=== PATIENT | male | born 1940 | race Caucasian/White ===

== ENCOUNTER 2021-03-25 05:39 | Observation (INO) ==
[2021-03-25] MEDS ORDERED: GABAPENTIN 400 MG CAPSULE PO ONE (06:00)
[2021-03-25] MEDS ORDERED: ACETAMINOPHEN 500 MG TABLET PO ONE (06:00)
[2021-03-25] MEDS ORDERED: ALVIMOPAN 12 MG CAPSULE PO ONE (06:00)
[2021-03-25] MEDS ORDERED: SODIUM PHOSPHATE ENEMA 133 ML BOTTLE RECTAL ONE (06:00)
[2021-03-25] MEDS ORDERED: cefTRIAXone 1,000 MG in SODIUM CHLORIDE 0.9% 100 ML IV ONE (06:00)
[2021-03-25] MEDS ORDERED: FAMOTIDINE 20 MG TABLET PO ONE (06:00)
[2021-03-25] MEDS ORDERED: LEVOFLOXACIN INJ 500 MG/100 ML PREMIX IV ONE (06:00)
[2021-03-25] MEDS ORDERED: LIDOCAINE 2% 5 ML VIAL ONE (06:41)
[2021-03-25] MEDS ORDERED: fentaNYL 100 MCG/2 ML VIAL ONE ×2 (06:41→07:49)
[2021-03-25] MEDS ORDERED: propofoL 200 MG/20 ML VIAL IV ONE (06:41)
[2021-03-25] MEDS ORDERED: ROCURONIUM 50 MG/5 ML VIAL IV ONE ×2 (06:41→07:53)
[2021-03-25] MEDS ORDERED: MIDAZOLAM 2 MG/2 ML VIAL ONE (06:41)
[2021-03-25] MEDS ORDERED: MEPERIDINE 25 MG/1 ML VIAL ONE (06:45)
[2021-03-25] MEDS ORDERED: MORPHINE 10 MG/1 ML VIAL ONE (06:46)
[2021-03-25] MEDS: LACTATED RINGERS 1,000 ML IV SCH ×2 (07:14→11:34)
[2021-03-25] MEDS ORDERED: ePHEDrine 50 MG/ML VIAL ONE ×2 (07:18→09:08)
[2021-03-25] MEDS ORDERED: LACTATED RINGERS 1,000 ML IV ONE (07:52)
[2021-03-25] MEDS ORDERED: GLYCOPYRROLATE 0.4 MG/2 ML VIAL ONE (07:56)
[2021-03-25 08:20] LABS: Bilirubin,Urine Negative (Negative); Blood, Urine Large mg/dL (Negative); Glucose,Urine (UA) Negative (Negative); Ketones,Urine Negative (Negative); Mucus,Urine Occasional /LPF (Occasional); Nitrite,Urine Positive (Negative); Protein,Urine Negative; RBC,Urine 301 /HPF (0-4); Urine Appearance Slightly Hazy (Clear); Urine Color Yellow (Yellow); Urine Specific Gravity 1.012 (1.001-1.035); Urine Urobilinogen < 2.0 EU/DL (<2.0)
[2021-03-25] MEDS ORDERED: SEVOFLURANE 1 UNIT/15 MINUTE INH ONE (10:31)
[2021-03-25] MEDS ORDERED: SUGAMMADEX 200 MG/2 ML VIAL IV ONE (10:32)
[2021-03-25] MEDS ORDERED: ONDANSETRON 4 MG/2 ML VIAL IV PRN ×2 (10:49→11:18)
[2021-03-25] MEDS ORDERED: HYDROmorphone 2 MG/1 ML VIAL IV PRN (10:55)
[2021-03-25] MEDS ORDERED: oxyCODONE/ACETAMINOPHEN 5-325 MG TABLET PO PRN (11:16)
[2021-03-25] MEDS: HYDROmorphone 2 MG/1 ML VIAL IV PRN ×4 (11:25→11:55)
[2021-03-25] MEDS ORDERED: CYPROHEPTADINE 4 MG TABLET PO SCH (15:00)
[2021-03-25] MEDS: oxyCODONE/ACETAMINOPHEN 5-325 MG TABLET PO PRN ×2 (17:17→22:24)
[2021-03-25] MEDS: SODIUM CHLORIDE 0.45% 1,000 ML IV SCH (18:01)
[2021-03-25] MEDS: SIMVASTATIN 40 MG TABLET PO SCH (22:11)
[2021-03-25] MEDS: ACYCLOVIR 800 MG TABLET PO SCH (22:11)
[2021-03-25] MEDS: busPIRone 10 MG TABLET PO SCH (22:11)
[2021-03-25] MEDS: ALVIMOPAN 12 MG CAPSULE PO SCH (22:11)
[2021-03-26] MEDS ORDERED: OXYBUTYNIN 5 MG TABLET PO ONE (00:35)
[2021-03-26] MEDS: SODIUM CHLORIDE 0.45% 1,000 ML IV SCH (03:20)
[2021-03-26 05:47] LABS: Basophils % 0.1 % (0.0-0.8); Hematocrit 30.4 VOL% (42.0-52.0); Hemoglobin 9.2 GM/DL (14.0-18.0); Immature Granulocytes % 0.2 %; Immature Granulocytes Absolute 0.11 #; Lymphocytes # 48.8 10*3/uL (1.4-4.0); Lymphocytes % 86.9 % (21.2-54.2); Mean Corpuscular HGB Conc 30.3 GM/DL (32-36); Mean Corpuscular Volume 102.7 FL (87-102); Mean Platelet Volume 10.8 FL (9.6-12.0); NRBC # 0.05 10*3/uL; Neutrophils % 10.8 % (38.7-73.9); Platelet Count 112 T/CUMM (130-400); Red Blood Count 2.96 MC/CUMM (3.8-5.5); Red Cell Distribution Width 13.2 % (9.3-17.3)
[2021-03-26 05:58] LABS: White Blood Count 56.1 T/CUMM (4-12)
[2021-03-26 06:04] LABS: Calcium 8.3 MG/DL (8.5-10.1); Osmolality,Calculated 273.2 MOS/KG (273-304); Potassium 3.9 MMOL/L (3.5-5.1)
[2021-03-26 06:09] LABS: Atypical Lymphocytes Few; Hypochromia 1+; Lymphocytes 79 % (20-55); Microcytosis 1+; Segmented Neutrophils 19 % (50-85); Smudge Cells Moderate; Total Cells Counted 100
[2021-03-26] MEDS: LEVOTHYROXINE 150 MCG TABLET PO SCH (06:28)
[2021-03-26] MEDS: oxyCODONE/ACETAMINOPHEN 5-325 MG TABLET PO PRN ×2 (06:31→11:51)
[2021-03-26] MEDS ORDERED: LEVOFLOXACIN INJ 500 MG/100 ML PREMIX IV SCH (09:00)
[2021-03-26] MEDS ORDERED: GLUCAGON 1 MG VIAL IM PRN (09:33)
[2021-03-26] MEDS ORDERED: DEXTROSE 50% 25 GM/50 ML SYRINGE IV PRN (09:33)
[2021-03-26] MEDS ORDERED: PHENOL 1.4% THROAT SPRAY 177 ML BOTTLE PO PRN (09:33)
[2021-03-26] MEDS: GABAPENTIN 600 MG TABLET PO SCH ×2 (10:13→20:34)
[2021-03-26] MEDS: ALVIMOPAN 12 MG CAPSULE PO SCH ×2 (10:13→20:34)
[2021-03-26] MEDS: EZETIMIBE 10 MG TABLET PO SCH (10:13)
[2021-03-26] MEDS: glyBURIDE 5 MG TABLET PO SCH (10:13)
[2021-03-26] MEDS: SERTRALINE 25 MG TABLET PO SCH (10:14)
[2021-03-26] MEDS: busPIRone 10 MG TABLET PO SCH ×2 (10:14→20:34)
[2021-03-26] MEDS: SODIUM CHLORIDE 0.9% 1,000 ML IV SCH (11:34)
[2021-03-26] MEDS: ACYCLOVIR 800 MG TABLET PO SCH ×2 (11:49→20:34)
[2021-03-26] MEDS: LACTATED RINGERS 1,000 ML IV SCH (12:11)
[2021-03-26] MEDS: OXYBUTYNIN XL 10 MG TABLET PO SCH (15:57)
[2021-03-26] MEDS: SIMVASTATIN 40 MG TABLET PO SCH (20:34)
[2021-03-26] MEDS ORDERED: ACETAMINOPHEN 325 MG TABLET PO PRN (22:23)
[2021-03-26] MEDS ORDERED: cefTRIAXone 1,000 MG in SODIUM CHLORIDE 0.9% 100 ML IV ONE (22:25)
[2021-03-27] MEDS: SODIUM CHLORIDE 0.9% 1,000 ML IV SCH ×2 (00:33→13:06)
[2021-03-27 04:24] LABS: Potassium 4.2 MMOL/L (3.5-5.1)
[2021-03-27] MEDS: LEVOTHYROXINE 150 MCG TABLET PO SCH (06:07)
[2021-03-27] MEDS: glyBURIDE 5 MG TABLET PO SCH (09:13)
[2021-03-27] MEDS: ACYCLOVIR 800 MG TABLET PO SCH (09:14)
[2021-03-27] MEDS: busPIRone 10 MG TABLET PO SCH (09:14)
[2021-03-27] MEDS: ALVIMOPAN 12 MG CAPSULE PO SCH (09:14)
[2021-03-27] MEDS: EZETIMIBE 10 MG TABLET PO SCH (09:14)
[2021-03-27] MEDS: GABAPENTIN 600 MG TABLET PO SCH (09:14)
[2021-03-27] MEDS: SERTRALINE 25 MG TABLET PO SCH (09:14)
[2021-03-27] MEDS: OXYBUTYNIN XL 10 MG TABLET PO SCH (09:14)
[2021-03-27] MEDS: LACTATED RINGERS 1,000 ML IV SCH (10:09)
[2021-03-27 11:11] VITALS: BP 135/46
[2021-03-27] MEDS ORDERED: LEVOFLOXACIN INJ 500 MG/100 ML PREMIX IV ONE (13:00)
== END 2021-03-27 15:05 | disposition home or self-care (01) ==
LOC: N.OR 05:39 → N.3E 05:39 → N.SDSINP 05:41 → N.3E 12:09
PROVIDERS: ADMIT Urology; ATTEND Urology

== ENCOUNTER 2021-04-06 17:37 | Inpatient (IN) ==
[2021-04-06] MEDS ORDERED: ACETAMINOPHEN 325 MG TABLET PO PRN (19:55)
[2021-04-06] MEDS ORDERED: GLUCAGON 1 MG VIAL IM PRN (19:55)
[2021-04-06] MEDS ORDERED: ONDANSETRON 4 MG/2 ML VIAL IV PRN (19:55)
[2021-04-06] MEDS ORDERED: DEXTROSE 50% 25 GM/50 ML SYRINGE IV PRN (19:55)
[2021-04-06] MEDS ORDERED: LIDOCAINE 2% TOP JELLY 20 ML VIAL INTRAURETH ONE (20:10)
[2021-04-06 20:21] LABS: Basophils % 0.1 % (0.0-0.8); Eosinophils # 0.2 10*3/uL (0.0-0.87); Eosinophils % 0.3 % (0.00-10.9); Hemoglobin 10.1 GM/DL (14.0-18.0); Immature Granulocytes % 0.3 %; Immature Granulocytes Absolute 0.17 #; Lymphocytes # 47.8 10*3/uL (1.4-4.0); Lymphocytes % 87.9 % (21.2-54.2); Mean Corpuscular HGB Conc 31.6 GM/DL (32-36); Mean Corpuscular Volume 96.1 FL (87-102); Monocytes % 1.3 % (1.7-12.7); Neutrophils % 10.1 % (38.7-73.9); Platelet Count 184 T/CUMM (130-400); Red Blood Count 3.33 MC/CUMM (3.8-5.5); Red Cell Distribution Width 14.5 % (9.3-17.3)
[2021-04-06 20:25] LABS: White Blood Count 54.4 T/CUMM (4-12)
[2021-04-06 20:43] LABS: Lymphocytes 93 % (20-55); Segmented Neutrophils 7 % (50-85); Smudge Cells Many; Total Cells Counted 100
[2021-04-06 20:44] LABS: Burr Cells Few; Hypochromia 1+; Reactive Lymphocytes 1+
[2021-04-06 20:45] LABS: Albumin 2.4 G/DL (3.4-5.0); Anisocytosis 1+; Bilirubin,Total 1.2 MG/DL (0.20-1.00); Platelet Estimate Normal; Potassium 3.1 MMOL/L (3.5-5.1); Schistocytes Slight; Total Protein 5.1 G/DL (6.4-8.2)
[2021-04-06] MEDS ORDERED: POTASSIUM CHLORIDE 20 MEQ TABLET PO PRN (20:58)
[2021-04-06] MEDS ORDERED: MAGNESIUM SULF RIDER 2 GM/50 ML PREMIX IV PRN (20:58)
[2021-04-06] MEDS ORDERED: MAGNESIUM SULF RIDER 4 GM/100 ML PREMIX IV PRN (20:58)
[2021-04-06] MEDS ORDERED: POTASSIUM CHLORIDE RIDER 10 MEQ/100 ML PREMIX IV PRN (20:58)
[2021-04-06] MEDS ORDERED: LACTATED RINGERS 500 ML IV ONE (22:39)
[2021-04-06] MEDS: LACTATED RINGERS 1,000 ML IV SCH (22:43)
[2021-04-07] MEDS: PIPERACILLIN/TAZOBACTAM 3,375 MG in SODIUM CHLORIDE 0.9% 100 ML IV SCH ×3 (01:30→18:41)
[2021-04-07 05:30] LABS: PT Patient Result 10.9 SECS (10.5-12.0); Partial Thromboplastin Time 32.3 SECS (23.8-32.1)
[2021-04-07 05:34] LABS: Basophils % 0.1 % (0.0-0.8); Eosinophils # 0.2 10*3/uL (0.0-0.87); Eosinophils % 0.3 % (0.00-10.9); Hematocrit 29.9 VOL% (42.0-52.0); Hemoglobin 9.3 GM/DL (14.0-18.0); Immature Granulocytes % 0.3 %; Immature Granulocytes Absolute 0.14 #; Lymphocytes # 39.6 10*3/uL (1.4-4.0); Lymphocytes % 87.5 % (21.2-54.2); Mean Corpuscular HGB Conc 31.1 GM/DL (32-36); Mean Corpuscular Volume 97.1 FL (87-102); Mean Platelet Volume 10.1 FL (9.6-12.0); Monocytes % 1.4 % (1.7-12.7); Neutrophils % 10.4 % (38.7-73.9); Platelet Count 168 T/CUMM (130-400); Red Blood Count 3.08 MC/CUMM (3.8-5.5); Red Cell Distribution Width 14.6 % (9.3-17.3)
[2021-04-07 06:09] LABS: White Blood Count 45.3 T/CUMM (4-12)
[2021-04-07 06:10] LABS: Lymphocytes 80 % (20-55); Segmented Neutrophils 19 % (50-85); Total Cells Counted 100
[2021-04-07 06:11] LABS: Atypical Lymphocytes Few; Hypochromia 1+; Microcytosis 1+; Platelet Estimate Adequate; Smudge Cells Few
[2021-04-07 10:16] LABS: Hematocrit 30.2 VOL% (42.0-52.0); Hemoglobin 9.5 GM/DL (14.0-18.0)
[2021-04-07] MEDS: OXYBUTYNIN XL 15 MG TABLET PO SCH (11:35)
[2021-04-07] MEDS: PANTOPRAZOLE 40 MG TABLET PO SCH (11:35)
[2021-04-07] MEDS: INSULIN REGULAR 100 UNIT/ML SUBCUT SCH ×3 (11:35→21:03)
[2021-04-07 16:16] LABS: Hematocrit 31.7 VOL% (42.0-52.0)
[2021-04-07] MEDS: LACTATED RINGERS 1,000 ML IV SCH ×2 (18:41→18:42)
[2021-04-07 22:38] LABS: Hematocrit 30.3 VOL% (42.0-52.0); Hemoglobin 9.6 GM/DL (14.0-18.0)
[2021-04-08] MEDS: PIPERACILLIN/TAZOBACTAM 3,375 MG in SODIUM CHLORIDE 0.9% 100 ML IV SCH ×3 (02:51→17:15)
[2021-04-08 05:57] LABS: Calcium 8.3 MG/DL (8.5-10.1); Osmolality,Calculated 285.1 MOS/KG (273-304); Potassium 2.9 MMOL/L (3.5-5.1)
[2021-04-08 05:59] LABS: Basophils % 0.1 % (0.0-0.8); Eosinophils # 0.2 10*3/uL (0.0-0.87); Eosinophils % 0.4 % (0.00-10.9); Hemoglobin 9.8 GM/DL (14.0-18.0); Immature Granulocytes % 0.3 %; Immature Granulocytes Absolute 0.14 #; Lymphocytes # 38.1 10*3/uL (1.4-4.0); Mean Corpuscular HGB Conc 31.6 GM/DL (32-36); Monocytes % 1.3 % (1.7-12.7); Neutrophils % 10.9 % (38.7-73.9); Platelet Count 180 T/CUMM (130-400); Red Blood Count 3.23 MC/CUMM (3.8-5.5); Red Cell Distribution Width 14.1 % (9.3-17.3)
[2021-04-08 06:19] LABS: White Blood Count 43.8 T/CUMM (4-12)
[2021-04-08 06:26] LABS: Atypical Lymphocytes Few; Eosinophils 2 % (0-10); Hypochromia 1+; Lymphocytes 65 % (20-55); Microcytosis 1+; Platelet Estimate Adequate; Segmented Neutrophils 31 % (50-85); Smudge Cells Few; Total Cells Counted 100
[2021-04-08] MEDS: INSULIN REGULAR 100 UNIT/ML SUBCUT SCH ×4 (07:37→21:34)
[2021-04-08] MEDS: OXYBUTYNIN XL 15 MG TABLET PO SCH (09:21)
[2021-04-08] MEDS: PANTOPRAZOLE 40 MG TABLET PO SCH (09:21)
[2021-04-08] MEDS: POTASSIUM CHLORIDE 20 MEQ TABLET PO SCH ×2 (12:25→17:15)
[2021-04-08] MEDS: LACTATED RINGERS 1,000 ML IV SCH (21:34)
[2021-04-09] MEDS: POTASSIUM CHLORIDE 20 MEQ TABLET PO SCH (00:53)
[2021-04-09] MEDS: PIPERACILLIN/TAZOBACTAM 3,375 MG in SODIUM CHLORIDE 0.9% 100 ML IV SCH (02:23)
[2021-04-09 06:02] LABS: Osmolality,Calculated 288.7 MOS/KG (273-304); Potassium 3.6 MMOL/L (3.5-5.1)
[2021-04-09] MEDS ORDERED: DEXTROSE 10% 250 ML BAG IV PRN (09:00)
[2021-04-09 12:49] VITALS: BP 121/60
== END 2021-04-09 12:25 | disposition home or self-care (01) | DRG 696 ==
LOC: N.3E 19:28 → SUATTDRO 19:28
PROVIDERS: ADMIT Internal Medicine; ATTEND Internal Medicine